=== PATIENT | female | born 1985 | race Hispanic/Latino ===

== ENCOUNTER 2024-11-22 12:25 | Emergency (ER) | payer SELFPAY ==
[~2024-11-22] VITALS: Ht 167.6 cm; Wt 99.8 kg
[2024-11-22 14:46] VITALS: PULSE 78; RESP 16; TEMP 98.9; O2SAT 100
[2024-11-22] MEDS ORDERED: CEPHALEXIN500 MG PO (15:05)
[2024-11-22] MEDS ORDERED: DOXYCYCLINE HY100 MG PO (15:05)
== END 2024-11-22 15:24 | disposition home or self-care (01) ==
LOC: ER 14:59
DX: L03.031 Cellulitis of right toe (principal); F17.210 Nicotine dependence, cigarettes, uncomplicated
CPT/HCPCS: 99283